=== PATIENT | female | born 1970 | race Caucasian/White ===

== ENCOUNTER 2018-09-11 06:50 | Observation (INO) ==
--- NOTE | 2018-09-11 07:14 | Emergency Department Note ---
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 pt brought to ED via mobile EM team.) Limitations: no limitations Nursing Notes Reviewed: Yes Vital Signs Reviewed: Yes - History of Present Illness HPI Narrative: Jessica is a pleasant 47 yo F. She presents to the ED via the mobile EM team for a CC of syncopal episode just outside of the elevator. Patient is a current employee at [employer] and was at work while the episode occurred. Patient states that she was walking into the elevator when "all of a sudden I felt slightly light headed. The next thing I knew, I was on the ground with lots of people around me". She states that she did hit her head on the way down and feels like she has a small bump on the posterior right side of her skull. She states that she currently feels "fine. She denies any current dizziness, CP, SOB, urinary symptoms. 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 She describes having a "full" weekend of activities and notes that she may be slightly dehydrated. She states that she hurt neck at [facility] on Tuesday. Describes whiplash injury. She states that she woke up normal and had no problems with her morning activities including getting ready for work and driving to work . She wears glasses and is otherwise healthy. No other significant PMH. Patient denies hx of syncope, seizures. She denies street or recreational drugs. No recent alcohol use. Onset (ago): Just [employer] Pain Scale: 4 Associated symptoms: Reports: denies other symptoms - Related Data Home Medications Medication Instructions Recorded Confirmed Aspirin/Caffeine [Back & Body Pain 2 tab PO DAILY PRN 09/11/18 09/11/18 Reliever Cplt] Fexofenadine HCl 180 mg PO DAILY PRN 09/11/18 09/11/18 Levocetirizine Dihydrochloride 5 mg PO PRN PRN 09/11/18 09/11/18 [Allergy Relief (Xyzal)] raNITIdine HCl [Ranitidine HCl] 1 cap PO BID 09/11/18 09/11/18 Previous Rx's Medication Instructions Recorded Cephalexin [Keflex] 500 mg PO TID #30 capsule 09/11/18 Allergies Allergy/AdvReac Type Severity Reaction Status Date / Time meperidine Allergy Nausea Verified 04/04/18 14:54 morphine Allergy RASH WHEN Verified 09/11/18 14:54 GIVEN IV Sulfa (Sulfonamide Allergy Hives Verified 09/11/18 14:54 Antibiotics) trimethoprim Allergy Hives Verified 09/11/18 14:54 All systems ED: reviewed and negative except as stated. Review of Systems: As Per HPI Past Medical History - Past Medical History Medical history: Reports: non-contributory Surgical history: Reports: no surgical history Psychiatric history: Reports: no psych history - Social History Smoking Status: Current every day smoker Smokeless Tobacco Status: No Alcohol use: Reports: occasionally Drug use: Reports: none Physical Exam - General Limitations: no limitations General appearance: alert - Head Head exam: other (small bruise to posterior scalp without skin changes or bleeding) - Eye Eye exam: Present: normal appearance, PERRL, EOMI - ENT ENT exam: normal exam, normal oropharynx - Neck Neck exam: Present: normal inspection, full ROM - Chest Chest inspection: Present: normal inspection, symmetric chest wall rise. Absent: tenderness - Respiratory Respiratory exam: Present: normal lung sounds bilaterally. Absent: respiratory distress, wheezes - Cardiovascular Cardiovascular exam: Present: regular rate - Abdominal Exam Abdominal exam: Present: soft, Non-Tender - Extremities Exam Extremities exam: Present: normal inspection, full ROM. Absent: tenderness - Expanded Lower Extremity Exam Neurovascular/Tendon exam: Present: normal capillary refill Gait: observed and normal (although patient appears shaky during her steps; no neurological gait abnormalities) - Back Exam Back exam: Present: normal inspection (no spinal tenderness ) - Neurological Exam Neurological exam: Present: alert, oriented X3, CN II-XII intact, reflexes normal. Absent: motor sensory deficit - Psychiatric Psychiatric exam: Present: normal affect, normal mood - Skin Skin exam: Present: warm, dry, intact Course Course Narrative: 0730 - called to bedside for patient. patient was calling for help, HR dropped to 29. Rhythm strip has several dropped beats at even intervals. discussed case with hospitalist and patient will be admitted for obs. labs / head scan pending. Admission was discussed with Dr. Pena / patient and Dr. Vanesa Guillory. With shared decision making, patient requests admission for obs. Dr. Debbie Guillory took over care of patient due to questionable findings on CT head. Patient initially requested discharge, however following multiple episodes of potential cardiac activity and decreasing heart rate, patient requested admission. Antibiotics for UTI were started in the ED. Vital Signs Temperature 98.0 F 09/11/18 06:51 Pulse Rate 66 09/11/18 06:51 Respiratory Rate 18 09/11/18 06:51 Blood Pressure 140/86 09/11/18 06:51 O2 Sat by Pulse Oximetry 100 09/11/18 06:51 Temperature 98.1 F 09/12/18 16:12 Pulse Rate 62 09/12/18 16:12 Respiratory Rate 14 09/12/18 16:12 Blood Pressure 136/81 09/12/18 16:12 O2 Sat by Pulse Oximetry 97 09/12/18 16:12 Oxygen Delivery Oxygen Delivery Room Air Medical Decision Making - Medical Records Medical records reviewed: Yes I reviewed the patient's medical records. - Lab Data Lab results reviewed: Yes I reviewed the patient's lab results. Result diagrams: 09/12/18 02:54 09/12/18 02:54 Lab Results 09/11/18 09/11/18 09/11/18 Range/Units 06:53 07:05 07:05 WBC 9.7 (4.3-11.1) K/mcL RBC 4.24 (3.82-4.97) M/mcL Hgb 12.8 (11.5-15.4) g/dL Hct 39.2 (35.3-44.9) % MCV 92.5 (83.0-100.0) fL MCH 30.2 (28.0-33.3) pg MCHC 32.7 (31.6-35.5) g/dL RDW 13.1 (11.5-14.5) % Plt Count 300 (140-400) K/mcL MPV 9.4 (9.4-12.4) fL Immature Gran % 0.6 (0-4) % Seg Neutrophils % 46.6 % Lymphocytes % 39.3 % Monocytes % 7.3 % Eosinophils % 5.1 % Basophils % 1.1 % Neutrophils # 4.5 (1.6-8.9) K/mcL Lymphocytes # 3.8 (0.6-4.6) K/mcL Monocytes # 0.7 (0.0-1.3) K/mcL Eosinophils # 0.5 (0.0-0.6) K/mcL Basophils # 0.1 (0.0-0.2) K/mcL PT 10.2 (9.4-12.1) Seconds INR 0.9 APTT 27.2 (26.0-36.0) Seconds Sodium (136-145) mEq/L Potassium (3.5-5.1) mEq/L Chloride (98-107) mEq/L Carbon Dioxide (23-29) mEq/L BUN (6-20) mg/dL Creatinine (0.60-1.20) mg/dL Est GFR ( Amer) (> 60) Est GFR (Non-Af Amer) (> 60) BUN/Creatinine Ratio (6-26) Glucose (70-105) mg/dL POC Glucose 110 H (70-99) mg/dL Calculated Osmolality (280-300) Calcium (8.6-10.3) mg/dL Troponin I (< 0.04) ng/mL Serum , Qual (Negative) Urine Color (Yellow) Urine Clarity (Clear) Urine pH (5.0-8.0) pH Units Ur Specific [place] (1.010-1.025) Urine Protein (Neg-Trace) mg/dL Urine Glucose (UA) (Normal) mg/dL Urine Ketones (Negative) mg/dL Urine Blood (Negative) Urine Nitrite (Negative) Urine Bilirubin (Negative) Urine Urobilinogen (Normal) mg/dL Ur Leukocyte Esterase (Negative) Urine Microscopic RBC (0-3) per hpf Urine Microscopic WBC (0-3) per hpf Ur Squamous Epith Cells (None-Few) per lpf Urine Bacteria (None-Few) per hpf Hyaline Casts (None-Few) per lpf Ur Culture Indicated? (NO) 09/11/18 09/11/18 09/11/18 Range/Units 07:05 07:05 08:15 WBC (4.3-11.1) K/mcL RBC (3.82-4.97) M/mcL Hgb (11.5-15.4) g/dL Hct (35.3-44.9) % MCV (83.0-100.0) fL MCH (28.0-33.3) pg MCHC (31.6-35.5) g/dL RDW (11.5-14.5) % Plt Count (140-400) K/mcL MPV (9.4-12.4) fL Immature Gran % (0-4) % Seg Neutrophils % % Lymphocytes % % Monocytes % % Eosinophils % % Basophils % % Neutrophils # (1.6-8.9) K/mcL Lymphocytes # (0.6-4.6) K/mcL Monocytes # (0.0-1.3) K/mcL Eosinophils # (0.0-0.6) K/mcL Basophils # (0.0-0.2) K/mcL PT (9.4-12.1) Seconds INR APTT (26.0-36.0) Seconds Sodium 139 (136-145) mEq/L Potassium 3.7 (3.5-5.1) mEq/L Chloride 104 (98-107) mEq/L Carbon Dioxide 22 L (23-29) mEq/L BUN 16 (6-20) mg/dL Creatinine 0.78 (0.60-1.20) mg/dL Est GFR ( Amer) > 60 (> 60) Est GFR (Non-Af Amer) > 60 (> 60) BUN/Creatinine Ratio 21 (6-26) Glucose 110 H (70-105) mg/dL POC Glucose (70-99) mg/dL Calculated Osmolality 290 (280-300) Calcium 9.3 (8.6-10.3) mg/dL Troponin I < 0.03 (< 0.04) ng/mL Serum , Qual Negative (Negative) Urine Color Yellow (Yellow) Urine Clarity Cloudy A (Clear) Urine pH 6.0 (5.0-8.0) pH Units Ur Specific [place] 1.019 (1.010-1.025) Urine Protein Negative (Neg-Trace) mg/dL Urine Glucose (UA) Normal (Normal) mg/dL Urine Ketones Negative (Negative) mg/dL Urine Blood Negative (Negative) Urine Nitrite Positive A (Negative) Urine Bilirubin Negative (Negative) Urine Urobilinogen Normal (Normal) mg/dL Ur Leukocyte Esterase Moderate H (Negative) Urine Microscopic RBC 0-3 (0-3) per hpf Urine Microscopic WBC 15-30 H (0-3) per hpf Ur Squamous Epith Cells Few (None-Few) per lpf Urine Bacteria Many H (None-Few) per hpf Hyaline Casts Few (None-Few) per lpf Ur Culture Indicated? YES A (NO)
[2018-09-11] MEDS ORDERED: 0.9 % Sodium Chloride 1,000 ML IVC ONE (07:23)
[2018-09-11 07:50] LABS: Basophils # 0.1 K/mcL (0.0-0.2); Basophils % 1.1 %; Eosinophils # 0.5 K/mcL (0.0-0.6); Eosinophils % 5.1 %; Hematocrit 39.2 % (35.3-44.9); Hemoglobin 12.8 g/dL (11.5-15.4); Immature Granulocytes % 0.6 % (0-4); Lymphocytes # 3.8 K/mcL (0.6-4.6); Lymphocytes % 39.3 %; Mean Corpuscular HGB Conc 32.7 g/dL (31.6-35.5); Mean Corpuscular Hemoglobin 30.2 pg (28.0-33.3); Mean Corpuscular Volume 92.5 fL (83.0-100.0); Mean Platelet Volume 9.4 fL (9.4-12.4); Monocytes # 0.7 K/mcL (0.0-1.3); Monocytes % 7.3 %; Neutrophils # 4.5 K/mcL (1.6-8.9); Platelet Count 300 K/mcL (140-400); Red Blood Count 4.24 M/mcL (3.82-4.97); Red Cell Distribution Width 13.1 % (11.5-14.5); Segmented Neutrophils % 46.6 %; White Blood Count 9.7 K/mcL (4.3-11.1)
[2018-09-11 07:59] LABS: INR 0.9; Prothrombin Time 10.2 Seconds (9.4-12.1)
[2018-09-11 08:01] LABS: BUN/Creatinine Ratio 21 (6-26); Blood Urea Nitrogen 16 mg/dL (6-20); Calcium 9.3 mg/dL (8.6-10.3); Carbon Dioxide 22 mEq/L (23-29); Chloride 104 mEq/L (98-107); Glucose 110 mg/dL (70-105); Osmolality,Calculated 290 (280-300); Potassium 3.7 mEq/L (3.5-5.1); Sodium 139 mEq/L (136-145); Troponin I < 0.03 ng/mL (< 0.04); eGFR For African Americans > 60 (> 60); eGFR For Non-African Americans > 60 (> 60)
[2018-09-11 08:02] LABS: Activated Partial Thrombo Time 27.2 Seconds (26.0-36.0)
[2018-09-11 08:40] LABS: Bilirubin,Urine Negative (Negative); Blood,Urine Negative (Negative); Clarity,Urine Cloudy (Clear); Color,Urine Yellow (Yellow); Glucose,Urine (UA) Normal (Normal); Ketones,Urine Negative (Negative); Leukocyte Esterase,Urine Moderate (Negative); Nitrite,Urine Positive (Negative); Protein,Urine Negative (Neg-Trace); Specific Gravity,Urine 1.019 (1.010-1.025); Urobilinogen,Urine Normal (Normal)
[2018-09-11 08:42] LABS: Hyaline Casts,Urine Few per lpf (None-Few)
[2018-09-11 08:59] LABS: Squamous Epithelial Cell,Urine Few per lpf (None-Few)
[2018-09-11 09:00] LABS: Bacteria,Urine Many per hpf (None-Few); RBC,Urine 0-3 per hpf (0-3); WBC,Urine 15-30 per hpf (0-3)
[2018-09-11] MEDS ORDERED: cefTRIAXone 1,000 MG in Water for inj. (sterile) 10 ML IVP ONE (09:30)
--- NOTE | 2018-09-11 09:30 | Emergency Department Note ---
Disposition Clinical Impression: Syncope Qualifiers: Syncope type: vasovagal syncope Qualified Code(s): R55 - Syncope and collapse UTI (urinary tract infection) Qualifiers: Urinary tract infection type: site unspecified Hematuria presence: without hematuria Qualified Code(s): N39.0 - Urinary tract infection, site not specified Disposition: Home, Self-Care Condition: Good Time of Disposition: 09:30 General Adult HPI - General Chief complaint: ED Fall Stated complaint: syncope Time Seen by Provider: 09/11/18 07:03 Source: patient Limitations: no limitations - History of Present Illness Pain Scale: 4 - Related Data Home Medications Medication Instructions Recorded Confirmed ASA/Calcium Carb/Mag/Al Hydrox 1,000 mg PO DAILY 11/09/16 09/11/18 [Latha Plus 500 mg Caplet] Fexofenadine HCl 180 mg PO PRN PRN 09/11/18 09/11/18 Levocetirizine Dihydrochloride 5 mg PO PRN PRN 09/11/18 09/11/18 [Allergy Relief (Xyzal)] raNITIdine HCl [Ranitidine HCl] 150 mg PO PRN PRN 09/11/18 09/11/18 Previous Rx's Medication Instructions Recorded Cephalexin [Keflex] 500 mg PO TID #30 capsule 09/11/18 Allergies Allergy/AdvReac Type Severity Reaction Status Date / Time meperidine Allergy Nausea Verified 04/04/18 14:54 morphine Allergy Nausea Verified 04/04/18 14:54 Sulfa (Sulfonamide Allergy Hives Verified 04/04/18 14:54 Antibiotics) trimethoprim Allergy Hives Verified 04/04/18 14:54 Past Medical History - Past Medical History Medical history: Reports: non-contributory Surgical history: Reports: no surgical history Psychiatric history: Reports: no psych history - Social History Smoking Status: Current every day smoker Smokeless Tobacco Status: No Alcohol use: Reports: occasionally Drug use: Reports: none Physical Exam - General Limitations: no limitations General appearance: alert Course - Consultations Consultation #1: discussed case with radiologist (Dr. Loaiza) and he ensure there is no corresponding epidural or intracranial bleed. and (Dr. Boss) neurologist about the subgaleal hematoma and they both do not think they need neurosurgical intervention. And her syncope is most likley seoncdary to her bradycardaic event. Dr. Boss (neurology) will monitor in hospital as consult. Time: 12:35 Vital Signs Temperature 98.0 F 09/11/18 06:51 Pulse Rate 66 09/11/18 06:51 Respiratory Rate 18 09/11/18 06:51 Blood Pressure 140/86 09/11/18 06:51 O2 Sat by Pulse Oximetry 100 09/11/18 06:51 Temperature 98.0 F 09/11/18 06:51 Pulse Rate 56 09/11/18 11:10 Respiratory Rate 14 09/11/18 11:10 Blood Pressure 150/87 09/11/18 11:10 O2 Sat by Pulse Oximetry 97 09/11/18 11:10 Oxygen Delivery Oxygen Delivery Room Air Medical Decision Making - Lab Data Result diagrams: 09/11/18 07:05 09/11/18 07:05 Lab Results 09/11/18 09/11/18 09/11/18 Range/Units 07:05 07:05 07:05 WBC 9.7 (4.3-11.1) K/mcL RBC 4.24 (3.82-4.97) M/mcL Hgb 12.8 (11.5-15.4) g/dL Hct 39.2 (35.3-44.9) % MCV 92.5 (83.0-100.0) fL MCH 30.2 (28.0-33.3) pg MCHC 32.7 (31.6-35.5) g/dL RDW 13.1 (11.5-14.5) % Plt Count 300 (140-400) K/mcL MPV 9.4 (9.4-12.4) fL Immature Gran % 0.6 (0-4) % Seg Neutrophils % 46.6 % Lymphocytes % 39.3 % Monocytes % 7.3 % Eosinophils % 5.1 % Basophils % 1.1 % Neutrophils # 4.5 (1.6-8.9) K/mcL Lymphocytes # 3.8 (0.6-4.6) K/mcL Monocytes # 0.7 (0.0-1.3) K/mcL Eosinophils # 0.5 (0.0-0.6) K/mcL Basophils # 0.1 (0.0-0.2) K/mcL PT 10.2 (9.4-12.1) Seconds INR 0.9 APTT 27.2 (26.0-36.0) Seconds Sodium 139 (136-145) mEq/L Potassium 3.7 (3.5-5.1) mEq/L Chloride 104 (98-107) mEq/L Carbon Dioxide 22 L (23-29) mEq/L BUN 16 (6-20) mg/dL Creatinine 0.78 (0.60-1.20) mg/dL Est GFR ( Amer) > 60 (> 60) Est GFR (Non-Af Amer) > 60 (> 60) BUN/Creatinine Ratio 21 (6-26) Glucose 110 H (70-105) mg/dL Calculated Osmolality 290 (280-300) Calcium 9.3 (8.6-10.3) mg/dL Troponin I < 0.03 (< 0.04) ng/mL Serum , Qual (Negative) Urine Color (Yellow) Urine Clarity (Clear) Urine pH (5.0-8.0) pH Units Ur Specific [place] (1.010-1.025) Urine Protein (Neg-Trace) mg/dL Urine Glucose (UA) (Normal) mg/dL Urine Ketones (Negative) mg/dL Urine Blood (Negative) Urine Nitrite (Negative) Urine Bilirubin (Negative) Urine Urobilinogen (Normal) mg/dL Ur Leukocyte Esterase (Negative) Urine Microscopic RBC (0-3) per hpf Urine Microscopic WBC (0-3) per hpf Ur Squamous Epith Cells (None-Few) per lpf Urine Bacteria (None-Few) per hpf Hyaline Casts (None-Few) per lpf Ur Culture Indicated? (NO) 09/11/18 09/11/18 Range/Units 07:05 08:15 WBC (4.3-11.1) K/mcL RBC (3.82-4.97) M/mcL Hgb (11.5-15.4) g/dL Hct (35.3-44.9) % MCV (83.0-100.0) fL MCH (28.0-33.3) pg MCHC (31.6-35.5) g/dL RDW (11.5-14.5) % Plt Count (140-400) K/mcL MPV (9.4-12.4) fL Immature Gran % (0-4) % Seg Neutrophils % % Lymphocytes % % Monocytes % % Eosinophils % % Basophils % % Neutrophils # (1.6-8.9) K/mcL Lymphocytes # (0.6-4.6) K/mcL Monocytes # (0.0-1.3) K/mcL Eosinophils # (0.0-0.6) K/mcL Basophils # (0.0-0.2) K/mcL PT (9.4-12.1) Seconds INR APTT (26.0-36.0) Seconds Sodium (136-145) mEq/L Potassium (3.5-5.1) mEq/L Chloride (98-107) mEq/L Carbon Dioxide (23-29) mEq/L BUN (6-20) mg/dL Creatinine (0.60-1.20) mg/dL Est GFR ( Amer) (> 60) Est GFR (Non-Af Amer) (> 60) BUN/Creatinine Ratio (6-26) Glucose (70-105) mg/dL Calculated Osmolality (280-300) Calcium (8.6-10.3) mg/dL Troponin I (< 0.04) ng/mL Serum , Qual Negative (Negative) Urine Color Yellow (Yellow) Urine Clarity Cloudy A (Clear) Urine pH 6.0 (5.0-8.0) pH Units Ur Specific [place] 1.019 (1.010-1.025) Urine Protein Negative (Neg-Trace) mg/dL Urine Glucose (UA) Normal (Normal) mg/dL Urine Ketones Negative (Negative) mg/dL Urine Blood Negative (Negative) Urine Nitrite Positive A (Negative) Urine Bilirubin Negative (Negative) Urine Urobilinogen Normal (Normal) mg/dL Ur Leukocyte Esterase Moderate H (Negative) Urine Microscopic RBC 0-3 (0-3) per hpf Urine Microscopic WBC 15-30 H (0-3) per hpf Ur Squamous Epith Cells Few (None-Few) per lpf Urine Bacteria Many H (None-Few) per hpf Hyaline Casts Few (None-Few) per lpf Ur Culture Indicated? YES A (NO) Attestation Statement - Attestation Attestation: For this encounter, I have reviewed the CAMPUS COORDINATOR or PA documentation, treatment plan, and medical decision making; and I have had face to face time with this patient. 47 yea rold female presnets ot the ED with complaints of sycnope while at work today. Patinet apepars to have an UTI on exam. non-ischemic EKG, negative troponin, denies chest pain. HCT negative. offered admission and she declines at this time. DC home
[2018-09-11] MEDS ORDERED: Naloxone 0.4 MG/ML INJ IVP PRN (14:13)
[2018-09-11] MEDS ORDERED: Ondansetron 4 MG/2 ML VIAL IVP PRN (14:13)
[2018-09-11] MEDS ORDERED: Loratadine 10 MG TABLET PO PRN (15:14)
--- NOTE | 2018-09-11 15:30 | Internal Med History&Physical ---
Date of Encounter: 09/11/18 Time of Encounter: 15:24 Internal Medicine - H&P: HPI Chief complaint: Syncope Admitted From: Emergency Dept Plans for Post Hospital Care: Home History of present illness: Ms. 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 Pt stated suddenly she felt dizzy, lightheaded and diaphoretic. She was found to have bradycardia wiht HR in 30's. When she fell down she had head trauma, hurt on her occipital area, where she noticed small smelling. She denied any CP / SOB. She happened to have few more episodes of bradycardic spells in the ER which are associated with nausea / vomiting. Now her HR In 50's. Past Med Surg Social Fam HX - Past Medical History Medical history: non-contributory Additional medical history: Kidney Stones Psychiatric history: no psych history - Past Surgical History Surgical History: no surgical history Additional surgical history: Kidney Stone removal - Social History Smoking Status: Current every day smoker Smokeless Tobacco Status: No Alcohol use: occasionally Drug use: none - Additional Family History Additional family history: Family hsitory reviewed and non contribuitory to current problem. Internal Medicine - H&P: Meds Aspirin/Caffeine [Back & Body Pain Reliever Cplt] 2 tab PO DAILY PRN 09/11/18 [History] Cephalexin [Keflex] 500 mg PO TID #30 capsule 09/11/18 [Rx] Fexofenadine HCl 180 mg PO DAILY PRN 09/11/18 [History] Levocetirizine Dihydrochloride [Allergy Relief (Xyzal)] 5 mg PO PRN PRN 09/11/18 [History] Allergy/AdvReac Type Severity Reaction Status Date / Time meperidine Allergy Nausea Verified 04/04/18 14:54 morphine Allergy RASH WHEN Verified 09/11/18 14:54 GIVEN IV Sulfa (Sulfonamide Allergy Hives Verified 09/11/18 14:54 Antibiotics) trimethoprim Allergy Hives Verified 09/11/18 14:54 All Systems PM: A 10-system review of systems was performed and is negative for pertinent findings except as documented above in the HPI. Review of systems: All the systems are reviewed everything is benign except the systems and symptoms I mentioned in the history of present illness - Constitutional Vitals: Temp Pulse Resp BP Pulse Ox 98.0 F 56 18 139/78 97 09/11/18 06:51 09/11/18 11:10 09/11/18 14:47 09/11/18 14:47 09/11/18 11:10 General appearance: Present: cooperative, A&O X 3, no acute distress, answers questions appropriately Exam: a - Head Additional comments: noticed small palpable swelling over posterior scalp region. - Neck Neck exam general surgery: Present: normal inspection, supple. Absent: tenderness - Respiratory Respiratory exam: Present: decreased breath sounds. Absent: rales, respiratory distress, rhonchi, wheezes - Cardiovascular Cardiovascular exam: Present: bradycardia, +S1, +S2. Absent: systolic murmur - GI/Abdominal GI/Abdominal exam: Present: normal bowel sounds, soft. Absent: rebound, rigid, tenderness - Back Exam Back exam: Absent: CVA tenderness (L), CVA tenderness (R) - Neurological Exam Neurological exam: Present: alert, CN II-XII intact, oriented X3, no focal deficits, strengths equal and symetr throughout. Absent: speech deficit - Psychiatric Psychiatric exam: Present: normal affect, normal mood - Skin Skin exam: Absent: rash Internal Med - H&P Results - Labs CBC & Chem 7: 09/11/18 07:05 09/11/18 07:05 Labs: Short CBC 09/11/18 Range/Units 07:05 WBC 9.7 (4.3-11.1) K/mcL Hgb 12.8 (11.5-15.4) g/dL Hct 39.2 (35.3-44.9) % Plt Count 300 (140-400) K/mcL Neutrophils # 4.5 (1.6-8.9) K/mcL BMP 09/11/18 07:05 Sodium 139 Potassium 3.7 Chloride 104 Carbon Dioxide 22 L BUN 16 Creatinine 0.78 Glucose 110 H Calcium 9.3 Cardiac Enzymes 09/11/18 Range/Units 07:05 Troponin I < 0.03 (< 0.04) ng/mL Urine 09/11/18 Range/Units 08:15 Urine Color Yellow (Yellow) Urine Clarity Cloudy A (Clear) Urine pH 6.0 (5.0-8.0) pH Units Ur Specific [place] 1.019 (1.010-1.025) Urine Protein Negative (Neg-Trace) mg/dL Urine Glucose (UA) Normal (Normal) mg/dL - Impressions ITS Impressions Chest X-Ray 09/11/18 07:23 IMPRESSION: No acute cardiopulmonary abnormality. D/ / Gilbert Esteban MD / Gilbert Esteban MD Interpreting Provider: Gilbert Esteban MD Head CT 09/11/18 07:32 IMPRESSION: 1. No acute intracranial abnormality nor acute calvarial fracture. 2. Questionable tiny subgaleal hematoma in the posterior right parietal scalp. 3. Paranasal sinus disease most severe in the ethmoid sinuses, where superimposed acute sinusitis may be present. D/ / Gerardo Loaiza MD / Gerardo Loaiza MD Interpreting Provider: Gerardo Loaiza MD - Assessment and Plan (1) Syncope Current Visit: Yes Status: Acute Assessment and plan: Will place the pt into Tele for observation Pt's Syncope seems to be more like vasovagal reaction however still need to r/o ACS vs Arrhythmia especially with her yarelis cardiac spells will place the pt on hall monitor check serial troponin so far negative trop Reviewed EKG by myself - noticed NSR HR @ 60's. NO ST T changes noticed will start ASA will get 2 D echo and Carotid Doppler in AM Will check FLP in AM Will check ortho stat vitals Started on IV fluids Consulted Cardiology Qualifiers: Syncope type: vasovagal syncope Qualified Code(s): R55 - Syncope and collapse (2) Bradycardia Current Visit: Yes Status: Acute Assessment and plan: cont on tele (3) Scalp hematoma Current Visit: Yes Status: Acute Assessment and plan: CT of head showed No acute intracranial abnormality nor acute calvarial fracture. Questionable tiny subgaleal hematoma in the posterior right parietal scalp. Cont close monitoring no ICH bleeding noticed Will do q4hr Neuro checks for possible concussion Qualifiers: Encounter type: initial encounter Qualified Code(s): S00.03XA - Contusion of scalp, initial encounter (4) UTI (urinary tract infection) Current Visit: Yes Status: Acute Assessment and plan: UA - abnormal Urine cx - P Started on empirical abx IV Rocephin Qualifiers: Urinary tract infection type: site unspecified Hematuria presence: without hematuria Qualified Code(s): N39.0 - Urinary tract infection, site not specified - Time Spent With Patient Total time spent is greater than 50% in coordination of care (as documented) at patient's floor/unit and/or counseling patient:
[2018-09-11] MEDS: 0.9 % Sodium Chloride 1,000 ML IVC SCH (18:10)
[2018-09-11] MEDS ORDERED: Perflutren Lipid Microsphere 1.3 ML in 0.9 % Sodium Chloride 8.7 ML IVP ONE (20:53)
[2018-09-12 03:50] LABS: Hemoglobin 13.2 g/dL (11.5-15.4); Mean Corpuscular HGB Conc 32.2 g/dL (31.6-35.5); Mean Corpuscular Hemoglobin 30.1 pg (28.0-33.3); Mean Corpuscular Volume 93.6 fL (83.0-100.0); Mean Platelet Volume 9.8 fL (9.4-12.4); Platelet Count 263 K/mcL (140-400); Red Blood Count 4.38 M/mcL (3.82-4.97); Red Cell Distribution Width 13.1 % (11.5-14.5); White Blood Count 10.7 K/mcL (4.3-11.1)
[2018-09-12 04:03] LABS: BUN/Creatinine Ratio 17 (6-26); Blood Urea Nitrogen 11 mg/dL (6-20); Calcium 8.6 mg/dL (8.6-10.3); Carbon Dioxide 23 mEq/L (23-29); Chloride 109 mEq/L (98-107); Chol/HDL Ratio 3.1 (0-4.9); Cholesterol 188 mg/dL (< 200); Glucose 91 mg/dL (70-105); HDL Cholesterol 60 mg/dL (40-59); LDL Cholesterol,Calculated 110 mg/dL (0-99); Magnesium 2.1 mg/dL (1.6-2.6); Osmolality,Calculated 287 (280-300); Potassium 3.9 mEq/L (3.5-5.1); Sodium 139 mEq/L (136-145); Triglycerides 88 mg/dL (< 150); eGFR For African Americans > 60 (> 60); eGFR For Non-African Americans > 60 (> 60)
[2018-09-12] MEDS: 0.9 % Sodium Chloride 1,000 ML IVC SCH (05:11)
[2018-09-12] MEDS: Acetaminophen 325 MG TABLET PO PRN ×2 (09:32→22:08)
[2018-09-12] MEDS: cefTRIAXone 1,000 MG in Water for inj. (sterile) 10 ML IVP SCH (09:33)
[2018-09-12] MEDS: Aspirin Enteric Coated 81 MG Tablet PO SCH (09:33)
[2018-09-12] MEDS: *HR* LORazepam 0.5 MG TABLET PO PRN (10:48)
--- NOTE | 2018-09-12 12:50 | Cardiology Consult Note ---
<Barbara Crews - Last Filed: 09/12/18 12:45> Date of Encounter: 09/12/18 Time of Encounter: 09:45 Assessment and Plan (1) Syncope Current Visit: Yes Status: Acute Per cardiology: -Symptoms appear to be vasovagal. -TTE with LVEF preserved, no wall motion abnormalities noted. -No events on telemetry. -ECG with SB, HR 49. -Average HR 55, SB. Minimum HR 46, nocturnal. -Discussed and reviewed with , will proceed with tilt table test in am. -Educated to increase water intake, limit caffeine, change positions slowly. Qualifiers: Syncope type: vasovagal syncope Qualified Code(s): R55 - Syncope and collapse (2) Bradycardia Current Visit: Yes Status: Acute Per cardiology: -SB noted. -ECG with SB, HR 49. -Telemetry reviewed with average HR previous 12 hours noted to be 55, SB. Minimum HR 46. -Denies current dizziness, lightheadedness. -Symptoms appear to be vasovagal and not related to bradycardia. -Will plan for event monitor prior to discharge. -Continue telemetry. Discussion w patient/family: The assessment and plan as outlined above was discussed with the patient who expressed understanding and agreement. All questions were answered. Thank you for involving us in the care of your patient. Please call with any questions. Discussed and reviewed with . History of Present Illness Consult date: 09/11/18 Requesting physician: Criselda Quinonez Consult reason: syncope Chief complaint: syncope History of present illness: Ms. Fung is a 47 year old female with a relevant past medical history of an xiety, kidney stones, anxiety, who presented to ER with complaints of syncope. Patient works at [employer] in [id number]. 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 Patient states next thing she knew, she woke up on the floor with people surrounding her. Patient deneis visual changes. Reports loss of bladder, but no loss of bowel. Denies previous syncopal episodes. Denies palpitations or fluttering. Reports drinking a couple caffeinated beverages per day. Denies current dizziness, lightheadedness. Past Med Surg Social Fam HX - Past Medical History Attestation: Yes The following information was validated with the patient. Source: patient, old records reviewed Medical history: non-contributory Additional medical history: Kidney Stones Psychiatric history: anxiety - Past Surgical History Surgical History: no surgical history Additional surgical history: Kidney Stone removal - Social History Smoking Status: Current every day smoker Packs per day: 1/2 pack Smokeless Tobacco Status: No Alcohol use: occasionally Drug use: none - Family History Mother Living Status: Still Living Medications and Allergies Aspirin/Caffeine [Back & Body Pain Reliever Cplt] 2 tab PO DAILY PRN 09/11/18 [History] Cephalexin [Keflex] 500 mg PO TID #30 capsule 09/11/18 [Rx] Fexofenadine HCl 180 mg PO DAILY PRN 09/11/18 [History] Levocetirizine Dihydrochloride [Allergy Relief (Xyzal)] 5 mg PO PRN PRN 09/11/18 [History] raNITIdine HCl [Ranitidine HCl] 1 cap PO BID 09/11/18 [History] Allergy/AdvReac Type Severity Reaction Status Date / Time meperidine Allergy Nausea Verified 04/04/18 14:54 morphine Allergy RASH WHEN Verified 09/11/18 14:54 GIVEN IV Sulfa (Sulfonamide Allergy Hives Verified 09/11/18 14:54 Antibiotics) trimethoprim Allergy Hives Verified 09/11/18 14:54 All Systems Review: The remainder of the systems were reviewed and are negative - Cardiovascular Cardiovascular: as per HPI, lightheadedness - Neurological Neurological: syncope Physical Examination Vital Signs, Last 4 Hours Temp Pulse Resp BP Pulse Ox 09/12/18 11:37 97.9 F 66 18 119/75 96 General: Conversant, No Apparent Distress HEENT: Atraumatic, Normocephaly, Mucus Membranes Moist Neck: No JVD, Normal carotid pulses Cardiac: Reg Rate and Rhythm, Normal S1 and S2, No Murmur Lungs: Normal Breath Sounds, No Wheeze, Rales, Rhonchi Neuro: Alert and responsive, No focal deficits noted Abdomen: Soft, Non-Tender Skin: No rashes noted on visualized skin Musculoskeletal: No Chest Wall Tenderness Extremities: No Clubbing, No Cyanosis, No Edema, Normal Pulses Results 09/12/18 02:54 09/12/18 02:54 Lab Results Impressions Echocardiogram 09/11/18 15:25 Impressions: LVEF 60-65%. Normal LV chamber size, wall thickness and function. Normal left ventricular diastolic function. Right ventricle was not well visualized. Grossly, it is normal in function. No significant valvular dysfunction. Estimated RVSP is 38 mmHg. Left Ventricular Wall Motion: Rest Echo Findings All wall segments showed normal motion. Findings: Study Quality * Technically sub-optimal due to poor echocardiographic windows. ECG Findings * Normal sinus rhythm. Left Ventricle * LVEF 60-65%. * Normal LV chamber size, wall thickness and function. * Normal left ventricular diastolic function. Right Ventricle * Right ventricle was not well visualized. Grossly, it is normal in function. Left Atrium * Left atrium is not well visualized. Right Atrium * Right atrium is not well visualized. Interatrial Septum * Interatrial septum not well evaluated. Aortic Valve * Aortic valve not well visualized. * No aortic stenosis. * No aortic regurgitation. Mitral Valve * Normal mitral valve structure and function. * No mitral regurgitation. * No mitral stenosis. Tricuspid Valve * Normal tricuspid valve structure and function. * Trace tricuspid regurgitation. * Estimated RVSP is 38 mmHg. * Estimated RA pressure is 5 mmHg. Pulmonic Valve * Pulmonic valve not well visualized. Aorta * Normally sized aortic root. Pericardium * The pericardium appears normal. IVC * Grossly, normal IVC dimension. Response to Valsalva not well appreciated. Pulmonary Artery * Pulmonary artery not well visualized. Active Medications Acetaminophen (Tylenol) 650 mg PO Q6HR PRN PRN Reason: Mild Pain/Fever Stop: 03/13/19 14:14 Last Admin: 09/12/18 09:32 Dose: 650 mg Documented by: Aspirin (Aspirin Ec) 81 mg PO DAILY [facility] Stop: 03/14/19 09:01 Last Admin: 09/12/18 09:33 Dose: 81 mg Documented by: Docusate Sodium (Colace) 100 mg PO BID PRN PRN Reason: Constipation Stop: 03/13/19 21:01 Ceftriaxone Sodium 1,000 mg/ (Sterile Water) 10 mls @ 600 mls/hr IVP DAILY [facility] Stop: 03/14/19 09:01 Last Admin: 09/12/18 09:33 Dose: 600 mls/hr Documented by: Loratadine (Claritin) 10 mg PO DAILY PRN PRN Reason: Allergy Symptoms Lorazepam (Ativan) 0.5 mg PO TID PRN PRN Reason: Anxiety Stop: 03/14/19 09:43 Last Admin: 09/12/18 10:48 Dose: 0.5 mg Documented by: Naloxone HCl (Narcan) 0.4 mg IVP Q2MPRN PRN PRN Reason: SEE COMMENTS Stop: 03/13/19 14:14 Ondansetron HCl (Zofran) 4 mg IVP Q8HR PRN PRN Reason: Nausea And Vomiting Stop: 03/13/19 14:14 Laboratory Tests 09/11/18 09/11/18 09/11/18 07:05 15:55 22:06 Hgb Creatinine Troponin I < 0.03 < 0.03 < 0.03 09/12/18 09/12/18 02:54 02:54 Hgb 13.2 Creatinine 0.64 Troponin I - Imaging and Cardiology Chest Xray: report reviewed Echo: report reviewed - EKG Interpretation EKG results cardiology: personally reviewed (ECG with SB, HR 49.), other (Telemetry reviewed with average HR previous 12 hours noted to be 55, SB. PACs noted. Minimum HR 46, nocturnal.) Consult Discharge Plan - Plan Referrals: Torie Xie MD [Primary Care Provider] - 09/20/18 2:00 pm <Lorrie Mcelroy - Last Filed: 09/12/18 15:10> Date of Encounter: 09/12/18 - Attending Attestation Patient was seen and evaluated independently by me. Findings, assessment and plan were discussed at length with patient, questions answered. Agree with nurse practitioner's/resident's documentation. Addition as follows, 47yoCF ho nephrolithiasis, seasonal allergy. P/w first episode of LOC while walking preceded by dizziness/diaphoresis, followed by a fall c/b scalp trauma, urinary incontinence. Question of syncope vs migraine vs seizure. Sig for bradycardia w/o pause, negative for orthostatic vitals, bactereuria suspected UTI, interview didn't reveal No prior episode, obvious vasovagal triggers (pain, sig distress etc) or hypovolemia/dehydration. No ho chest pain, HENDRICKSON, palpitations, LE edema. No relevant FH. VSS, CTA B/L, RR, no M/G/R, abd NT, no LE edema. ECG S yarelis. Tele SR 50s-70s TTE EF 60-65%, nl diastolic function, grossly normal RV, no sig valve abn, borderline PH, RVSP 38 CBC/BMP wnl A: First episode LOC with traumat, ddx syncope, complex migraine, seizure Suspected neurocardiogenic response Borderline pulmonary hypertension, unclear etiology ?UTI P: Tilt table test Event monitor before discharge Cardiology clinic f/u Lorrie Mcelroy MD, PhD Assessment and Plan Discussion w patient/family: The assessment and plan as outlined above was discussed with the patient and/or family members who expressed understanding and agreement. All questions were ans wered. Thank you for involving us in the care of your patient. Please call with any questions. History of Present Illness History of present illness: Ms. Fung is a 47 year old female All Systems Review: The remainder of the systems were reviewed and are negative Physical Examination Vital Signs, Last 4 Hours Temp Pulse Resp BP Pulse Ox 09/12/18 11:37 97.9 F 66 18 119/75 96 Results 09/12/18 02:54 09/12/18 02:54 Lab Results 09/11/18 09/11/18 09/12/18 15:55 22:06 02:54 WBC 10.7 Hgb 13.2 Hct 41.0 Plt Count 263 Sodium Potassium Chloride Carbon Dioxide BUN Creatinine Glucose Calcium Magnesium Troponin I < 0.03 < 0.03 09/12/18 02:54 WBC Hgb Hct Plt Count Sodium 139 Potassium 3.9 Chloride 109 H Carbon Dioxide 23 BUN 11 Creatinine 0.64 Glucose 91 Calcium 8.6 Magnesium 2.1 Troponin I
--- NOTE | 2018-09-12 13:31 | Internal Med Progress Note ---
Hospitalist Progress Note - Encounter Date of Encounter: 09/12/18 Time of Encounter: 13:28 - Subjective Interval History: Pt was seen and examined at bed side. She denied any new complaints She denied any CP / SOB No more syncopal episodes - Exam Vitals: Temp Pulse Resp BP Pulse Ox 97.9 F 66 18 119/75 96 09/12/18 11:37 09/12/18 11:37 09/12/18 11:37 09/12/18 11:37 09/12/18 11:37 Exam: Gen: Alert, awake, Oriented to time,place and person Chest: Diminished breath sounds B/L, No wheezing, No crackles, No rales Heart: S1S2+ RRR No murmurs Abd: Soft, NT, BS +, No organomegaly Ext: No edema, pulses are palpable, No calf tenderness Neuro : No acute focal neuro deficits noticed Skin: No rash. - Assessment and Plan (1) Syncope Current Visit: Yes Status: Acute Assessment and Plan: Pt's Syncope seems to be more like vasovagal reaction continue on engine monitor her serial troponin came back is negative EKG did not show any acute ischemic changes she still have mild sinus bradycardia cont ASA 81mg avoid BB her echocardiogram showed LVEF 60 - 65 %, normal left ventricular diastolic function.. No septal/wall motion abnormalities noticed Reviewed her FLP - LDL @ 110 discussed about lifestyle modifications for hyperlipidemia cardiology evaluated the patient and recommend tilt table test in the morning continue symptomatic and supportive care for now (2) Bradycardia Current Visit: Yes Status: Acute Assessment and Plan: cont on tele (3) Scalp hematoma Current Visit: Yes Status: Acute Assessment and Plan: CT of head showed No acute intracranial abnormality nor acute calvarial fracture. Questionable tiny subgaleal hematoma in the posterior right parietal scalp. Cont close monitoring no ICH bleeding noticed No signs of concussion (4) UTI (urinary tract infection) Current Visit: Yes Status: Acute Assessment and Plan: UA - abnormal Urine cx - growing G-ve rods Cont empirical abx IV Rocephin - Time Spent with Patient Total time spent is greater than 50% in coordination of care (as documented) at patient's floor/unit and/or counseling patient: Internal Medicine: Result - Labs CBC & Chem 7: 09/12/18 02:54 09/12/18 02:54 Labs: Short CBC 09/12/18 Range/Units 02:54 WBC 10.7 (4.3-11.1) K/mcL Hgb 13.2 (11.5-15.4) g/dL Hct 41.0 (35.3-44.9) % Plt Count 263 (140-400) K/mcL [facility] 09/12/18 02:54 Sodium 139 Potassium 3.9 Chloride 109 H Carbon Dioxide 23 BUN 11 Creatinine 0.64 Glucose 91 Calcium 8.6 Cardiac Enzymes 09/11/18 09/11/18 Range/Units 15:55 22:06 Troponin I < 0.03 < 0.03 (< 0.04) ng/mL - ABG Interpretation ABG results: PT/INR, D-dimer PT 10.2 Seconds (9.4-12.1) 09/11/18 07:05 - Impressions Impressions Echocardiogram 09/11/18 15:25 Impressions: LVEF 60-65%. Normal LV chamber size, wall thickness and function. Normal left ventricular diastolic function. Right ventricle was not well visualized. Grossly, it is normal in function. No significant valvular dysfunction. Estimated RVSP is 38 mmHg. Left Ventricular Wall Motion: Rest Echo Findings All wall segments showed normal motion. Findings: Study Quality * Technically sub-optimal due to poor echocardiographic windows. ECG Findings * Normal sinus rhythm. Left Ventricle * LVEF 60-65%. * Normal LV chamber size, wall thickness and function. * Normal left ventricular diastolic function. Right Ventricle * Right ventricle was not well visualized. Grossly, it is normal in function. Left Atrium * Left atrium is not well visualized. Right Atrium * Right atrium is not well visualized. Interatrial Septum * Interatrial septum not well evaluated. Aortic Valve * Aortic valve not well visualized. * No aortic stenosis. * No aortic regurgitation. Mitral Valve * Normal mitral valve structure and function. * No mitral regurgitation. * No mitral stenosis. Tricuspid Valve * Normal tricuspid valve structure and function. * Trace tricuspid regurgitation. * Estimated RVSP is 38 mmHg. * Estimated RA pressure is 5 mmHg. Pulmonic Valve * Pulmonic valve not well visualized. Aorta * Normally sized aortic root. Pericardium * The pericardium appears normal. IVC * Grossly, normal IVC dimension. Response to Valsalva not well appreciated. Pulmonary Artery * Pulmonary artery not well visualized. Consult Discharge Plan - Plan Referrals: Torie Xie MD [Primary Care Provider] - 09/20/18 2:00 pm _ (1) Syncope Qualifiers: Syncope type: vasovagal syncope Qualified Code(s): R55 - Syncope and collapse (3) Scalp hematoma Qualifiers: Encounter type: initial encounter Qualified Code(s): S00.03XA - Contusion of scalp, initial encounter (4) UTI (urinary tract infection) Qualifiers: Urinary tract infection type: site unspecified Hematuria presence: without hematuria Qualified Code(s): N39.0 - Urinary tract infection, site not specified
--- NOTE | 2018-09-12 14:45 | Electrocardiograph Report ---
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
[2018-09-13] MEDS: Aspirin Enteric Coated 81 MG Tablet PO SCH (08:59)
[2018-09-13] MEDS: cefTRIAXone 1,000 MG in Water for inj. (sterile) 10 ML IVP SCH (08:59)
[2018-09-13] MEDS: *HR* LORazepam 0.5 MG TABLET PO PRN (09:03)
[2018-09-13 11:04] VITALS: BP 145/79
[2018-09-13] MEDS: Acetaminophen 325 MG TABLET PO PRN (12:00)
--- NOTE | 2018-09-13 12:30 | Electrocardiograph Report ---
[facility] Test Date: 2018-09-11 Pat Name: Jessica Fung Department: [id number] Room: [facility] Gender: F Public Relations Supervisor: : 1970 Requested By: Melina Montenegro Order Number: [id number] Reading MD: To Camar[place] Measurements Intervals [place] Rate: 67 P: 15 MS: 140 QRS: 38 QRSD: 83 T: 44 QT: 395 QTc: 417 Interpretive Statements Sinus rhythm Electronically Signed On 09-13-2018 12:28:41 EDT by To [place]ar[place]
--- NOTE | 2018-09-13 14:06 | Discharge Summary ---
- NOTES TO OUTPATIENT PROVIDER Notes to Outpatient Provider: f/u with PCP in one week. f/u with vascular surgery in 1-2 weeks. Please start taking Aspirin 81mg PO Daily and Lipitor 40mg at HS. Please wear holter monitor as cardiology recommended Orders not resulted at time of discharge: Pending orders 09/12/18 06:00 EKG [ECG 12 lead ECG] [ECG] AM 0600 09/13/18 13:21 ECG event monitor 4 weeks [ECG] Routine Date of Encounter: 09/13/18 Time of Encounter: 13:59 - Discharge Diagnosis (1) Syncope Priority: Primary Status: Acute Qualifiers: Syncope type: vasovagal syncope Qualified Code(s): R55 - Syncope and collapse (2) Bradycardia Priority: Primary Status: Acute (3) UTI (urinary tract infection) Priority: Primary Status: Acute Qualifiers: Urinary tract infection type: site unspecified Hematuria presence: without hematuria Qualified Code(s): N39.0 - Urinary tract infection, site not specified (4) Scalp hematoma Priority: Secondary Status: Acute Qualifiers: Encounter type: initial encounter Qualified Code(s): S00.03XA - Contusion of scalp, initial encounter (5) Bilateral carotid artery stenosis Priority: Secondary Status: Acute (6) HLD (hyperlipidemia) Priority: Secondary Status: Acute Qualifiers: Hyperlipidemia type: unspecified Qualified Code(s): E78.5 - Hyperlipidemia, unspecified Hospital course: Ms. 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 Pt stated suddenly she felt dizzy, lightheaded and diaphoretic. She was found to have bradycardia wiht HR in 30's. When she fell down she had head trauma, hurt on her occipital area, where she noticed small smelling. She denied any CP / SOB. She happened to have few more episodes of bradycardic spells in the ER which are associated with nausea / vomiting. She was admitted in the hospital and placed her on quality assurance monitor chassis. She did not have any more syncopal episodes. Her serial troponin came back as negative. Her 2 D Echo showed LVEF 60 - 65 %, normal left ventricular diastolic function. No septal/wall motion abnormalities noticed. Her carotid doppler showed 60-79% carotid stenosis bilaterally. Recommend to f/u with vascular surgery as an out pt. She had UTI , so started her on IV Rocephin. Her urine cx did grow E. Coli. She was seen by cardiology who did tilt test. - Time Spent with Patient Total time spent providing and/or coordinating discharge services: - Discharge Medications Prescriptions: New Cephalexin [Keflex] 500 mg PO TID #15 capsule Aspirin Enteric Coated [Aspirin EC] 81 mg PO DAILY #30 tablet. Atorvastatin [Lipitor] 40 mg PO HS #30 tablet Continued Levocetirizine Dihydrochloride [Allergy Relief (Xyzal)] 5 mg PO PRN PRN PRN Reason: Itching Fexofenadine HCl 180 mg PO DAILY PRN PRN Reason: Allergy Symptoms Aspirin/Caffeine [Back-Body Pain 500-32.5MG Cplt] 2 tab PO DAILY PRN PRN Reason: Pain raNITIdine HCl [Ranitidine HCl] 1 cap PO BID Home Medications: Aspirin/Caffeine [Back-Body Pain 500-32.5MG Cplt] 2 tab PO DAILY PRN 09/11/18 [History] Fexofenadine HCl 180 mg PO DAILY PRN 09/11/18 [History] Levocetirizine Dihydrochloride [Allergy Relief (Xyzal)] 5 mg PO PRN PRN 09/11/18 [History] raNITIdine HCl [Ranitidine HCl] 1 cap PO BID 09/11/18 [History] Aspirin Enteric Coated [Aspirin EC] 81 mg PO DAILY #30 tablet. 09/13/18 [Rx] Atorvastatin [Lipitor] 40 mg PO HS #30 tablet 09/13/18 [Rx] Cephalexin [Keflex] 500 mg PO TID #15 capsule 09/13/18 [Rx] Allergies/Adverse Reactions: Allergy/AdvReac Type Severity Reaction Status Date / Time meperidine Allergy Nausea Verified 04/04/18 14:54 morphine Allergy RASH WHEN Verified 09/11/18 14:54 GIVEN IV Sulfa (Sulfonamide Allergy Hives Verified 09/11/18 14:54 Antibiotics) trimethoprim Allergy Hives Verified 09/11/18 14:54 Date of admission: 09/11/18 11:28 Primary care physician: Torie Xie MD Consults: 09/11/18 15:18 Consult to Cardiology [CONS] Routine Comment: Consulting Provider: Cardiology [place] Reason for Consult: Acute Syncope - Bradycardia Time Notified: 15:20 Call Completed: Yes - Constitutional Vitals: Temp Pulse Resp BP Pulse Ox 97.6 F 55 16 145/79 99 09/13/18 11:03 09/13/18 11:03 09/13/18 11:03 09/13/18 11:03 09/13/18 11:03 General appearance: Present: cooperative, A&O X 3, no acute distress, answers questions appropriately Exam: Gen: Alert, awake, Oriented to time,place and person Chest: Diminished breath sounds B/L, No wheezing, No crackles, No rales Heart: S1S2+ RRR No murmurs Abd: Soft, NT, BS +, No organomegaly Ext: No edema, pulses are palpable, No calf tenderness Neuro : No acute focal neuro deficits noticed Skin: No rash. - Patient Status Disposition: Home, Self-Care Condition: Good Overall status at discharge: patient is back to baseline - Discharge Instructions Instructions: Cephalexin (By mouth), Aspirin (By mouth), Atorvastatin (By mouth), Syncope (DC) Follow Up With: Torie Xie MD [Primary Care Provider] - 09/20/18 2:00 pm Kamar Andre MD [Partnered Physician] - (Appointment has been requested.) - Diet and Activity Activity: increase activity as tolerated Diet: low salt diet
--- NOTE | 2018-09-13 14:47 | Event Note ---
Date of Encounter: 09/13/18 Time of Encounter: 14:46 - Cardiology Event Note Tilt test negative. Recommend event monitor (ordered). Cardiology will sign off, will arrange outpatient follow up.
== END 2018-09-13 16:25 | disposition home or self-care (01) ==
LOC: 3BNU 06:50 → EMEROOARM 06:50 → SUATTDRO 11:28 → 3BNU 15:24
PROVIDERS: ADMIT Internal Medicine Nephrology; ATTEND Family Medicine